=== PATIENT | female | born 1985 | race Caucasian/White ===

== ENCOUNTER 2016-06-23 18:22 | Emergency (ER) | payer OTHER ==
[~2016-06-23] VITALS: Ht 167.6 cm; Wt 74.5 kg
[~2016-06-23 18:22] MED LIST: HYDR-4003 PO; IBUP-1827 PO; LEVO75TA4 PO; PREN1TAB69 PO
[2016-06-23 18:33] VITALS: BP 119/74; PULSE 76; RESP 16; O2SAT 98
--- NOTE | 2016-06-23 19:42 | ED.REPORT ---
HPI- Female Date of Service Jun 23, 2016 ED Provider: Doc,Ed MD History of Present Illness: 06/17 [facility] at [facility] with hemm[facility]. . given meds not helping. has hard stools. primary care volsky tylenol and cortisorne cream baby is 2 weeks old ria delivered baby no follow up yet Nursing Notes Stated Complaint: HEMORRHOIDS Chief Complaint: General Complaint Nursing Notes Reviewed: Yes Allergies: Coded Allergies: No Known Allergies (Verified , 06/23/16) Scheduled Levothyroxine (Levothyroxine) 75 Mcg Tablet 75 MCG PO DAILY Vit/Fe Fumarate/Fa-Expunged Drug, Do (-Expunged Drug, Do Not Renew!) 1 Each Tablet 1 EACH PO DAILY Scheduled PRN Hydrocodone-Acetaminophen 5-325 mg (Hydrocodone-Acetaminophen 5-325 mg) 1 Each Tablet 1-2 TABLET PO Q4H PRN PRN For Pain Ibuprofen (Ibuprofen) 600 Mg Tablet 600 MG PO Q6H PRN PRN For Mild Pain General Time Seen by MD: 19:42 Chief Complaint Other Hx Obtained From: Patient Sudden in Onset?: No Past Medical History Past Medical History Denies: Asthma Past Surgical History denies Smoking History Never Smoker Social History Alcohol Use: Denies alcohol use Drug Use: Denies drug use Occupation lives with and new baby 06/23/2016 Review of Systems Basic Review of Systems Eyes: Vision NL, No discharge Respiratory: No shortness of breath, No cough, No wheeze Cardiovascular: No chest pain, No dyspnea on exertion, No orthopnea, No parox noct dyspnea, No palpitations Hematologic: No bleeding, No bruising Allergy / Immune: No allergy Psychiatric: Normal thought content Physical Exam Initial Vital Signs Vital Signs (First) Date Time Temp Pulse Resp B/P Pulse Ox O2 Delivery O2 Flow Rate FiO2 06/23/16 18:33 37.1 76 16 119/74 98 Room Air Initial VS: Reviewed, Vital signs normal General/Constitutional: Well-developed, Well-nourished Head / Eyes: Atraumatic, Normocephalic, PERRL ENT: Mucous membranes moist, Conjunctiva normal, No scleral icterus Neck: Supple, Non-tender, Full range of motion Respiratory: Breath sounds normal, Clear to auscultation, No respiratory distress Cardiovascular: Regular rate & rhythm, Heart sounds normal, Intact distal pulses Abdomen / GI: Soft, Non-tender, No guarding, No rebound, No distention Back: No CVA tenderness Lymphatic: No lymphadenopathy Extremities: Vascular intact, Neuro intact, No swelling, No tenderness Skin: Warm, Dry, No cyanosis Neurologic: Alert, Oriented, Nonfocal Psychiatric: Mood/affect normal, Behavior normal, Normal thought content General/Constitutional: Awake, Alert, No acute distress Respiratory / Chest: Atraumatic, Breath sounds NL, Breath sounds = bilat, No respiratory distress Cardiovascular: Heart rate NL, Regular rhythm, Heart sounds NL, No gallop Abdomen: Atraumatic, Soft, Non-tender Rectum / Perineum Abnl: Positive: Hemorrhoid external, Hemorrhoid thrombosed several small hemorrhoids present. one has small scab on site Re-Eval/Medical Decision Med Decision/Clinical Course discussed with family things to hlep with constipation Discharge & Departure Impression: Primary Impression: External hemorrhoid, bleeding Disposition: Home Patient Instructions: Hemorrhoids (ED), High Fiber Diet (ED) Additional Instructions: You have a small hemmorroid that is bleeding. Start using witch talisha pads to the area. Fold it in 1/2 and that will help shrink the,. Also need to start on a stimulant to help with bowel movement. bisacodyl 5 mg daily. Also a list of high fiber foods is included. Please pick several foods that you like and eat them daily. Do sitz baths, 3 to 5 times a day for 15 minutes each time sitting in the bath tub in warm water about 6 to 8 inches deep. This will help heal them also. Stop using the cortisone cream. It can make your skin so thin it starts to bleed. Please keep the appointment with primary care as scheduled. Referrals: BRENDA ACOSTA MD (PCP) EDSupervising Provider for APC: Freya Beavers MD copies to: BRENDA ACOSTA MD, Sue ARNP Jun 23, 2016 19:42
== END 2016-06-23 20:15 | disposition home or self-care (01) ==
LOC: SED 18:22
DX: O87.2 Hemorrhoids in the puerperium (principal)